=== PATIENT | male | born 1985 | race Hispanic/Latino ===

== ENCOUNTER 2017-06-30 20:49 | Emergency (ER) | payer OTHER ==
--- NOTE | 2017-06-30 23:24 | ULT ---
SCROTAL ULTRASOUND WITH DOPPLER: 06/30/2017 PROVIDED CLINICAL HISTORY: Left testicular pain. FINDINGS: The right testicle measures about 4.2 x 1.9 x 2.9 cm and demonstrates a normal beltrán-scale sonographic appearance. The right epididymis appears normal. The left testicle measures about 4.3 x 1.9 x 2.7 cm and demonstrates a normal beltrán-scale sonographic appearance. The left epididymis appears normal. There is a left hydrocele present. There is an echogenic focus within the scrotal sac on the left, l ikely reflecting a scrotal enrique. Color Doppler and spectral analysis of the testicular waveforms demonstrates normal flow bilaterally. IMPRESSION: 1. Normal flow to both testicles. 2. Left sided hydrocele. POS: BRAVO
== END 2017-06-30 23:55 | disposition home or self-care (01) ==
LOC: ERS 20:49
DX: S39.011A Strain of muscle, fascia and tendon of abdomen, initial encounter (principal); I10 Essential (primary) hypertension; Z79.899 Other long term (current) drug therapy; X50.0XXA Overexertion from strenuous movement or load, initial encounter
CPT/HCPCS: 76870; 93976

== ENCOUNTER 2018-08-21 15:51 | Emergency (ER) | payer OTHER, SELFPAY ==
--- NOTE | 2018-08-21 16:18 | RAD ---
XR Shoulder Rt 3 View STANDARD: 08/21/2018 3:59 PM CLINICAL INDICATION: Pain COMPARISON: None. FINDINGS: Fracture:No fracture. Arthropathy:None of significance. Incidental findings:None of significance. IMPRESSION: 1. No acute osseous abnormality.
--- NOTE | 2018-08-21 16:19 | RAD ---
2 view chest: CLINICAL HISTORY: Pain COMPARISON: 05/03/2014 FINDINGS: There is no focal consolidation, effusion, or pneumothorax. Cardiac silhouette is normal in size. No acute osseous abnormality. IMPRESSION: No focal consolidation.
== END 2018-08-21 17:35 | disposition home or self-care (01) ==
LOC: ERS 15:51
DX: S20.211A Contusion of right front wall of thorax, initial encounter (principal); S40.011A Contusion of right shoulder, initial encounter; I10 Essential (primary) hypertension; V69.9XXA Occupant (driver) (passenger) of heavy transport vehicle injured in unspecified traffic accident, initial encounter
CPT/HCPCS: 71046